=== PATIENT | female | born 1960 | race Caucasian/White ===

== ENCOUNTER 2024-01-04 08:50 | Emergency (ER) | payer MEDICAID ==
[~2024-01-04] VITALS: Ht 165.1 cm; Wt 53.5 kg
[~2024-01-04 08:50] MED LIST: NITR100C6 PO
[2024-01-04 09:39] LABS: BASOPHILS # (AUTO) 0.3 K/UL (0.0-0.2); EOSINOPHILS # (AUTO) 0.1 K/uL (0.0-0.7); EOSINOPHILS % (AUTO) 0.5 % (0.0-7.0); HEMATOCRIT 33.5 % (31.2-41.9); LYMPHOCYTES # (AUTO) 0.8 K/uL (0.8-4.8); LYMPHOCYTES % (AUTO) 5.6 % (20.5-51.5); MEAN CORPUSCULAR HEMOGLOBIN 27.6 uug (24.7-32.8); MEAN CORPUSCULAR HGB CONC 33 g/dL (32.3-35.6); MEAN CORPUSCULAR VOLUME 83.8 fL (75.5-95.3); MONOCYTES % (AUTO) 7.2 % (0.0-11.0); NEUTROPHILS # (AUTO) 11.3 K/uL (1.8-8.9); NEUTROPHILS % (AUTO) 84.7 % (38.5-71.5); PLATELET COUNT (AUTO) 626 K/uL (179-408); RED BLOOD CELL COUNT(AUTO) 3.99 MIL/uL (3.63-4.92); RED CELL DISTRIBUTION WIDTH 20.4 % (12.3-17.7); WHITE BLOOD COUNT (AUTO) 13.4 K/uL (3.8-11.8)
[2024-01-04 09:51] LABS: DIFFERENTIAL COMMENT 1
[2024-01-04 09:53] LABS: AMMONIA 10 umol/L (11-32); CALCIUM 9.9 mg/dL (8.5-10.1); CARBON DIOXIDE 27 mmol/L (21-32); CHLORIDE 100 mmol/L (98-107); CREATININE 0.7 mg/dL (0.6-1.3); GLUCOSE 87 mg/dL (74-106); POTASSIUM 3.8 mmol/L (3.5-5.1); SODIUM SERUM 139 mmol/L (136-145); UREA NITROGEN, BLOOD 27 mg/dL (7-18)
[2024-01-04 10:00] LABS: ALANINE AMINOTRANSFERASE 63 U/L (14-59); ALBUMIN 3.6 g/dL (3.4-5.0); ALKALINE PHOSPHATASE 164 U/L (50-136); ASPARTATE AMINOTRANSFERASE 17 U/L (15-37); BILIRUBIN,DIRECT 0.2 mg/dL (0.0-0.2); BILIRUBIN,TOTAL 0.4 mg/dL (0.2-1.0); TOTAL PROTEIN, SERUM 8.6 g/dL (6.4-8.2)
[2024-01-04 10:02] LABS: ACETAMINOPHEN < 10.0 ug/mL (10-30)
[2024-01-04 10:21] LABS: ETHANOL < 3 MG/DL (0-10)
[2024-01-04 11:37] LABS: *BILIRUBIN,URIN NEGATIVE (NEGATIVE); *BLOOD, URINE 2+ (NEGATIVE); *CLARITY,URINE CLEAR (CLEAR); *COLOR,URINE YELLOW (YELLOW); *KETONES,URINE NEGATIVE (NEGATIVE); *PROTEIN,URINE 1+ (NEGATIVE); *UROBILINOGEN,URINE 0.2 E.U./dl (NORMAL); LEUKOCYTE ESTERASE ,URINE TRACE (NEGATIVE); NITRITE, URINE NEGATIVE (NEGATIVE); UGLUCOSE NEGATIVE (NEGATIVE)
[2024-01-04 11:42] LABS: BACTERIA,URINE FEW /HPF (NONE SEEN); RBC,URINE 20-50 /HPF (0-3); SQUAMOUS EPITHELIAL CELL,UR FEW /HPF (NONE SEEN)
[2024-01-04 11:43] LABS: *AMPHETAMINE, URINE POSITIVE (NEGATIVE); *BARBITURATE, URINE NEGATIVE (NEGATIVE); *BENZODIAZEPINE, URINE NEGATIVE (NEGATIVE); *CANNABINOID, URINE NEGATIVE (NEGATIVE); *COCCAINE, URINE NEGATIVE (NEGATIVE); *OPIATE, URINE NEGATIVE (NEGATIVE); *PHENCYCLIDINE SCREEN,URINE NEGATIVE (NEGATIVE); FENTANYL, URINE NEGATIVE (NEGATIVE)
[2024-01-04 14:22] VITALS: BP 122/98; O2SAT 96
[2024-01-04] MEDS: IV NORMAL SALINE 1000 ML BAG IV ONE (14:31)
[2024-01-04] MEDS: ACETAMINOPHEN 500 MG TABLET PO ONE (14:31)
== END 2024-01-04 14:34 | disposition home or self-care (01) ==
LOC: ER 08:50
DX: Z00.8 Encounter for other general examination (principal); F32.A Depression, unspecified; Z79.899 Other long term (current) drug therapy; Z60.2 Problems related to living alone; Z88.1 Allergy status to other antibiotic agents
CPT/HCPCS: 36415; 71045; 84484; 85025; 85730; 93005; 98960; A4606; A4663; G0480

== ENCOUNTER 2024-09-15 19:27 | Emergency (ER) | payer MEDICAID ==
[~2024-09-15] VITALS: Ht 167.6 cm; Wt 56.7 kg
[2024-09-15] MEDS ORDERED: SULFACETAMIDE SOD 10% OPHT DR 15 ML BOTTLE OP ONE (21:15)
[2024-09-15] MEDS ORDERED: SULF1TAB48 PO (21:19)
[2024-09-15] MEDS ORDERED: OXYCODONE/APAP 5-325 MG TABLET ONE (21:25)
[2024-09-15] MEDS ORDERED: SULFAMETH/TRIMETH 800/160 MG TABLET ONE (21:26)
[2024-09-15] MEDS: SULFAMETH/TRIMETH 800/160 MG TABLET PO ONE (21:27)
[2024-09-15] MEDS: OXYCODONE/APAP 5-325 MG TABLET PO ONE (21:28)
[2024-09-15] MEDS ORDERED: CIPROFLOXACIN 0.3% OPHT DROP 2.5 ML BOTTLE ONE (21:33)
[2024-09-15] MEDS: CIPROFLOXACIN 0.3% OPHT DROP 2.5 ML BOTTLE OP ONE (21:43)
[2024-09-15 21:44] VITALS: BP 148/72; O2SAT 98
== END 2024-09-15 21:45 | disposition home or self-care (01) ==
LOC: ER 20:25
DX: H10.33 Unspecified acute conjunctivitis, bilateral (principal); T63.441A Toxic effect of venom of bees, accidental (unintentional), initial encounter; G89.29 Other chronic pain; Z59.00 Homelessness unspecified; Z86.79 Personal history of other diseases of the circulatory system; Z88.8 Allergy status to other drugs, medicaments and biological substances; Z60.2 Problems related to living alone; Y92.89 Other specified places as the place of occurrence of the external cause
CPT/HCPCS: A4606; A4663

== ENCOUNTER 2025-01-25 23:36 | Emergency (ER) | payer SELFPAY ==
[~2025-01-25] VITALS: Ht 167.6 cm; Wt 54.4 kg
[~2025-01-25 23:36] MED LIST changes: +SULF1TAB48 PO
[2025-01-25 23:40] VITALS: BP 113/60
[2025-01-26 00:20] LABS: *BILIRUBIN,URIN NEGATIVE (NEGATIVE); *BLOOD, URINE 1+ (NEGATIVE); *CLARITY,URINE CLEAR (CLEAR); *COLOR,URINE YELLOW (YELLOW); *KETONES,URINE NEGATIVE (NEGATIVE); *PROTEIN,URINE NEGATIVE (NEGATIVE); *UROBILINOGEN,URINE 0.2 E.U./dl (NORMAL); LEUKOCYTE ESTERASE ,URINE NEGATIVE (NEGATIVE); NITRITE, URINE NEGATIVE (NEGATIVE); UGLUCOSE NEGATIVE (NEGATIVE)
[2025-01-26 00:42] LABS: SQUAMOUS EPITHELIAL CELL,UR MODERATE /HPF (NONE SEEN)
[2025-01-26] MEDS ORDERED: NITROFURANTOIN/NITROFURAN MAC 100 MG CAPSULE PO ONE (01:00)
[2025-01-26] MEDS ORDERED: ACETAMINOPHEN 325 MG TABLET ONE (01:00)
[2025-01-26] MEDS: ACETAMINOPHEN 325 MG TABLET PO ONE (01:01)
[2025-01-26] MEDS: NITROFURANTOIN/NITROFURAN MAC 100 MG CAPSULE PO ONE (01:02)
[2025-01-26] MEDS ORDERED: NITR100C6 PO (01:03)
[2025-01-26] MEDS ORDERED: IBUP-1953 PO (01:03)
[2025-01-26 01:07] VITALS: BP 113/60; O2SAT 97
== END 2025-01-26 01:07 | disposition home or self-care (01) ==
LOC: ER 23:48
DX: N39.0 Urinary tract infection, site not specified (principal); G89.29 Other chronic pain; M79.605 Pain in left leg; I51.9 Heart disease, unspecified; D66 Hereditary factor VIII deficiency; Z88.7 Allergy status to serum and vaccine; V49.9XXA Car occupant (driver) (passenger) injured in unspecified traffic accident, initial encounter; Y93.89 Activity, other specified; Y92.89 Other specified places as the place of occurrence of the external cause; Y99.8 Other external cause status
CPT/HCPCS: 73590; A4606; A4663

== ENCOUNTER 2025-03-02 18:58 | Emergency (ER) | payer SELFPAY ==
[~2025-03-02] VITALS: Ht 167.6 cm; Wt 54.4 kg
[~2025-03-02 18:58] MED LIST changes: +IBUP-1953 PO
[2025-03-02 19:20] VITALS: BP 156/67
[2025-03-02] MEDS ORDERED: ACETAMINOPHEN 325 MG TABLET ONE (19:36)
[2025-03-02] MEDS ORDERED: NAPROXEN 500 MG TABLET ONE (19:36)
[2025-03-02] MEDS: NAPROXEN 500 MG TABLET PO ONE (19:38)
[2025-03-02] MEDS: ACETAMINOPHEN 325 MG TABLET PO ONE (19:38)
[2025-03-02] MEDS ORDERED: NITR-104 PO (20:36)
[2025-03-02 20:43] VITALS: BP 148/67; O2SAT 98
== END 2025-03-02 20:44 | disposition home or self-care (01) ==
LOC: ER 19:08
DX: G89.29 Other chronic pain (principal); N39.0 Urinary tract infection, site not specified; M79.605 Pain in left leg; Z59.00 Homelessness unspecified; Z76.0 Encounter for issue of repeat prescription; Z88.7 Allergy status to serum and vaccine; R03.0 Elevated blood-pressure reading, without diagnosis of hypertension
CPT/HCPCS: A4606; A4663

== ENCOUNTER 2025-04-05 22:35 | Emergency (ER) | payer MEDICAID ==
[~2025-04-05] VITALS: Ht 167.6 cm; Wt 59.0 kg
[~2025-04-05 22:35] MED LIST changes: +NITR-165 PO
[2025-04-05 22:42] VITALS: BP 128/78
[2025-04-05] MEDS ORDERED: ACETAMINOPHEN 500 MG TABLET ONE (23:22)
[2025-04-05] MEDS: ACETAMINOPHEN 500 MG TABLET PO ONE (23:25)
[2025-04-05 23:40] LABS: *BLOOD, URINE 2+ (NEGATIVE); *CLARITY,URINE SLIGHTLY CLOUDY (CLEAR); *COLOR,URINE YELLOW (YELLOW); *KETONES,URINE TRACE (NEGATIVE); *PROTEIN,URINE 1+ (NEGATIVE); *UROBILINOGEN,URINE 0.2 E.U./dl (NORMAL); LEUKOCYTE ESTERASE ,URINE NEGATIVE (NEGATIVE); NITRITE, URINE NEGATIVE (NEGATIVE); UGLUCOSE NEGATIVE (NEGATIVE)
[2025-04-05 23:41] LABS: *BILIRUBIN,URIN 1+ (NEGATIVE)
[2025-04-06 00:10] VITALS: BP 128/78; O2SAT 98
[2025-04-06 00:23] LABS: SQUAMOUS EPITHELIAL CELL,UR MANY /HPF (NONE SEEN)
== END 2025-04-06 00:11 | disposition home or self-care (01) ==
LOC: ER 22:35
DX: N39.0 Urinary tract infection, site not specified (principal); G89.29 Other chronic pain; D66 Hereditary factor VIII deficiency; Z59.00 Homelessness unspecified; Z88.7 Allergy status to serum and vaccine
CPT/HCPCS: A4606; A4663; A9150